=== PATIENT | female | born 1985 | race Two or more races ===

== ENCOUNTER 2019-08-12 08:08 | Inpatient (IN) | payer MEDICAID ==
[~2019-08-12] VITALS: Ht 157.5 cm; Wt 88.5 kg
--- NOTE | 2019-08-12 08:10 | NUR ---
BIB [facility] 77 FROM WORK,S/P SYNCOPAL EPISODE,C/P RUQ CRAMPING UPON ARRIVAL. A/OX4, BREATHING EVEN AND UNLABORED, CHANGED INTO GOWN, ATTACHED TO THE BATTER DEPOSITOR. NO DISTRESS NOTED. IV LINE PRESENT MARINE UNDERWRITER.
[2019-08-12] MEDS ORDERED: IV NS 0.9% 1,000 ML BAG IV ONE (08:30)
--- NOTE | 2019-08-12 08:30 | NUR ---
us tech at bedside.
[2019-08-12 09:05] LABS: BASOPHILS # (AUTO) 0.1 /CMM (0.0-0.2); BASOPHILS % (AUTO) 0.4 % (0.0-2.0); EOSINOPHILS % (AUTO) 0.4 % (0.0-6.0); HEMATOCRIT 33 % (33-45); LYMPHOCYTES # (AUTO) 3.4 /CMM (0.8-4.8); LYMPHOCYTES % (AUTO) 18.4 % (20.0-44.0); MEAN CORPUSCULAR HGB CONC 33 g/dl (31.0-36.0); MEAN CORPUSCULAR VOLUME 83 fL (82-100); MONOCYTES # (AUTO) 0.8 /CMM (0.1-1.30); MONOCYTES % (AUTO) 4.6 % (2.0-12.0); NEUTROPHILS % (AUTO) 76.2 % (43.0-81.0); PLATELET COUNT (AUTO) 324 /CMM (150-450); RED BLOOD CELL COUNT(AUTO) 3.99 MIL/uL (4.0-5.2); WHITE BLOOD COUNT (AUTO) 18.4 K/uL (4.3-11.0)
[2019-08-12 09:10] LABS: CREATININE 0.9 mg/dL (0.6-1.3); POTASSIUM 3.8 mmol/L (3.5-5.1)
[2019-08-12 09:45] LABS: ALBUMIN 3.1 g/dL (3.4-5.0); BILIRUBIN,DIRECT 0.1 mg/dL (0.0-0.2); BILIRUBIN,TOTAL 0.8 mg/dL (0.2-1.0); TOTAL PROTEIN, SERUM 7.2 g/dL (6.4-8.2)
--- NOTE | 2019-08-12 10:02 | NUR ---
patient unable to urinate at this time. unable to provide sample.
[2019-08-12 10:26] LABS: BASOPHILS # (AUTO) 0.1 /CMM (0.0-0.2); BASOPHILS % (AUTO) 0.4 % (0.0-2.0); EOSINOPHILS % (AUTO) 0.2 % (0.0-6.0); HEMATOCRIT 33 % (33-45); LYMPHOCYTES % (AUTO) 10.9 % (20.0-44.0); MEAN CORPUSCULAR HGB CONC 33 g/dl (31.0-36.0); MEAN CORPUSCULAR VOLUME 83 fL (82-100); MONOCYTES # (AUTO) 0.8 /CMM (0.1-1.30); NEUTROPHILS # (AUTO) 15.8 /CMM (1.8-8.9); NEUTROPHILS % (AUTO) 84.5 % (43.0-81.0); PLATELET COUNT (AUTO) 309 /CMM (150-450); RED BLOOD CELL COUNT(AUTO) 3.99 MIL/uL (4.0-5.2); WHITE BLOOD COUNT (AUTO) 18.6 K/uL (4.3-11.0)
--- NOTE | 2019-08-12 10:43 | NUR ---
MOVE SHEET TURNED IN
--- NOTE | 2019-08-12 11:38 | NUR ---
MOVE SHEET SUBMITTED AND CALLED FOR TELE BED
--- NOTE | 2019-08-12 11:59 | NUR ---
PATIENT RESTING. NO DISTRESS NOTED
[2019-08-12] MEDS ORDERED: ACETAMINOPHEN ES 500 MG TABLET ONE (12:12)
[2019-08-12] MEDS ORDERED: ACETAMINOPHEN ES 500 MG TABLET PO ONE (12:20)
--- NOTE | 2019-08-12 12:21 | NUR ---
RECEIVED VERBAL ORDER TO GIVE TYLENOL 1GM PO X1 BY DR. WEN, PATIENT WITH 5/10PS.
[2019-08-12] MEDS ORDERED: IV D5/ 0.9% NACL 1,000 ML IV ONE (12:47)
[2019-08-12] MEDS ORDERED: HYDROMORPHONE 1 MG/1 ML DISP.SYRIN ONE (12:55)
[2019-08-12] MEDS ORDERED: HYDROMORPHONE INJ 2 MG/ML DISP.SYRIN IV ONE (13:00)
--- NOTE | 2019-08-12 13:54 | NUR ---
REPORT GIVENT Magdiel DURANT RN FOR GILBERT.
--- NOTE | 2019-08-12 14:14 | NUR ---
CALLED DR. WOOD INFORMED THAT PT WILL STAY IN THE HOSPITAL
--- NOTE | 2019-08-12 14:33 | NUR ---
PATIENT TRANSFERRED TO ROOM 319 VIA ACLS PROTOCOL. NO DISTRESS NOTED. ENDORSED TO JUANITA HENRIQUEZ.
--- NOTE | 2019-08-12 15:06 | NUR ---
MS/RN New admission New admission from emergency room with syncope and abdominal pain secondary to . Patient fully admitted, skin intact, only history is cholecystectomy. Awaiting orders from Dr Galeana.
[2019-08-12] MEDS ORDERED: IV D5/0.45 NACL 1,000 ML IV PRN (15:12)
[2019-08-12] MEDS ORDERED: Z GUARD REMEDY 2 OZ OINT TP PRN (15:30)
[2019-08-12] MEDS ORDERED: ACETAMINOPHEN 325 MG TABLET PO PRN (15:30)
[2019-08-12] MEDS ORDERED: MAGNESIUM HYDROXIDE 30 ML UDC PO PRN (15:30)
[2019-08-12] MEDS ORDERED: MAG HYDROX/AL HYDROX/SIMETH 30 ML UDC PO PRN (15:30)
[2019-08-12] MEDS: HYDROCODONE/APAP 5/325MG 1 EACH TABLET PO PRN ×2 (15:52→20:02)
[2019-08-12] MEDS: ONDANSETRON HCL/PF 4 MG/2 ML VIAL IVP PRN ×2 (15:55→22:20)
[2019-08-12 16:19] VITALS: BP 111/64
[2019-08-12 17:30] LABS: HEMOGLOBIN 9.5 g/dL (11.5-14.8)
--- NOTE | 2019-08-12 18:30 | NUR ---
MS/RN End note Patient remains in stable condition, pain appears to be controlled with norco at this time. No nausea or vomiting. IV fluids infusing at 75ml/hr via left AC 18g, no signs of infiltration seen. All questions and concerns addressed. Will endorse to [facility] shift lead.
--- NOTE | 2019-08-12 19:40 | NUR ---
RN OPENING NOTES 1939 RECEIVED PATIENT AWAKE IN BED, FAMILY AT BED SIDE. A/O X 4. PATIENT ABLE TO VERBALIZE NEEDS. NO SIGNS OF RESPIRATORY DISTRESS, NO SHORTNESS OF BREATH NOTED. TELE READING CURRENTLY ST 98. PATIENT COMPLAINS OF PAIN OR DISCOMFORT AT THIS TIME ON R ABDOMEN. IV SITE LAC IN PLACE, INTACT, PATENT, NO SIGNS OF INFECTION/INFILTRATION. SAFETY PRECAUTIONS IMPLEMENTED; CALL LIGHT WITHIN REACH, BED LOW, BED LOCKED, BILATERAL UPPER SIDE RAILS UP. WILL CONTINUE TO MONITOR.
[2019-08-12 20:00] VITALS: BP 113/68
--- NOTE | 2019-08-12 21:05 | NUR ---
RN NOTES 5197 PATIENT COMPLAINING OF PAIN 10/10 IN R ABDOMINAL AREA. PEPITO EARLIER IS NOT DOING ANY GOOD FOR HER. PAGED DR. WOOD TO UPDATE HER. DR. WOOD ORDERED: DILAUDID IVP 2 MG Q2H. VERBAL READBACK ORDER. WILL INPUT ORDERS AND VERIFY WITH THE PHARMACY.
[2019-08-12] MEDS ORDERED: HYDROMORPHONE INJ 2 MG/ML DISP.SYRIN IV PRN (21:30)
[2019-08-12 21:31] VITALS: BP 113/68
[2019-08-12] MEDS: HYDROMORPHONE INJ 2 MG/ML DISP.SYRIN IV PRN (21:36)
[2019-08-13] VITALS (8 sets, daily range): BP systolic 115–133; BP diastolic 57–71
[2019-08-13 02:26] LABS: APPEARANCE,URINE TURBID (CLEAR); BILIRUBIN,URINE NEGATIVE (NEGATIVE); BLOOD, URINE NEGATIVE Ery/uL (NEGATIVE); COLOR,URINE YELLOW (YELLOW); KETONES,URINE 15 (NEGATIVE); LEUKOCYTE ESTERASE ,URINE NEGATIVE (NEGATIVE); NITRITE, URINE NEGATIVE (NEGATIVE); PROTEIN,URINE TRACE mg/dl (NEGATIVE); UGLUCOSE NEGATIVE (NEGATIVE); UROBILINOGEN,URINE 0.2 EU/dL (0.2)
[2019-08-13 02:34] LABS: BACTERIA,URINE Few /HPF (None Seen); RBC,URINE 0-2 /HPF (0-2); SQUAMOUS EPITHELIAL CELL,UR Rare /HPF (None Seen); URINE AMORPHOUS URATE Many /HPF (None Seen); WBC,URINE 0-2 /HPF (0-3)
[2019-08-13] MEDS: HYDROMORPHONE INJ 2 MG/ML DISP.SYRIN IV PRN ×3 (06:08→18:42)
--- NOTE | 2019-08-13 06:24 | NUR ---
RN CLOSING NOTES PATIENT IS CURRENTLY ASLEEP, EASILY AWAKENED. NO SIGNS OF RESPIRATORY DISTRESS, NO SHORTNESS OF BREATH NOTED, RESPIRATIONS EVEN AND UNLABORED. TELE READING SR. PATIENTS PAIN APPEARS TO BE CONTROLLED WITH DILAUDID AT THIS TIME. IV SITE LAC REMAINS IN PLACE, INTACT AND PATENT, NO SIGNS OF INFECTION/INFILTRATION, FLUSHED. PATIENT KEPT CLEAN, DRY AND COMFORTABLE. ALL NEEDS MET ON SHIFT. ALL DUE MEDS GIVEN ORDERED WITH NO ADVERSE EFFECTS. SAFETY PRECAUTIONS IMPLEMENTED; CALL LIGHT WITHIN REACH, BED LOW, BED LOCKED, BILATERAL UPPER SIDE RAILS UP. WILL ENDORSE TO DAY SHIFT NURSE FOR CONTINUITY OF CARE.
[2019-08-13 08:17] LABS: BASOPHILS % (AUTO) 0.2 % (0.0-2.0); EOSINOPHILS % (AUTO) 0.1 % (0.0-6.0); HEMATOCRIT 25 % (33-45); HEMOGLOBIN 8.6 g/dL (11.5-14.8); LYMPHOCYTES # (AUTO) 1.7 /CMM (0.8-4.8); LYMPHOCYTES % (AUTO) 13.8 % (20.0-44.0); MEAN CORPUSCULAR HGB CONC 35 g/dl (31.0-36.0); MEAN CORPUSCULAR VOLUME 82 fL (82-100); MONOCYTES # (AUTO) 0.7 /CMM (0.1-1.30); MONOCYTES % (AUTO) 6.1 % (2.0-12.0); NEUTROPHILS # (AUTO) 9.8 /CMM (1.8-8.9); NEUTROPHILS % (AUTO) 79.8 % (43.0-81.0); PLATELET COUNT (AUTO) 226 /CMM (150-450); RED BLOOD CELL COUNT(AUTO) 2.99 MIL/uL (4.0-5.2); WHITE BLOOD COUNT (AUTO) 12.3 K/uL (4.3-11.0)
[2019-08-13] MEDS: IV NS 0.9% 1,000 ML IV PRN ×2 (08:44→18:42)
[2019-08-13 08:53] LABS: CALCIUM, SERUM 8.4 mg/dL (8.5-10.1); CREATININE 0.7 mg/dL (0.6-1.3); MAGNESIUM 1.8 mg/dL (1.8-2.4); PHOSPHORUS 3.1 mg/dL (2.5-4.9); POTASSIUM 3.9 mmol/L (3.5-5.1)
[2019-08-13] MEDS: ONDANSETRON HCL/PF 4 MG/2 ML VIAL IVP PRN ×2 (11:19→18:40)
--- NOTE | 2019-08-13 13:51 | NUR ---
MS RN NOTES PATIENT SEEN BY DR. WOOD ORDERS TO DRAW REPEAT H/H AND AND OK TO DISCHARGE IN THE AM IF H/H DID NOT DROP.
[2019-08-13 15:30] LABS: HEMOGLOBIN 8.6 g/dL (11.5-14.8)
--- NOTE | 2019-08-13 19:32 | NUR ---
MS RN NOTES PATIENT IN BED RESTING NO SOB OR ACUTE DISTRESS NOTED. ALL DUE MEDICATIONS ADMINISTERED. ALL NEEDS MET. NO ACUTE CHANGED NOTED. PAIN WAS WELL CONTROLLED. ENDORSED CARE TO PM SHIFT.
--- NOTE | 2019-08-13 19:59 | NUR ---
MS RN OPENING NOTES PATIENT RECEIVED RESTING IN BED A/O X 4. STABLE ON RA WITH BREATHING EVEN AND UNLABORED, NO SOB NOTED. NO SIGNS OF ACUTE DISTRESS. NO COMPLAINTS OF PAIN OR DISCOMFORT. IV LOCATED ON L AC RUNNING D51/2 NS. SAFETY PRECAUTIONS IN PLACE WITH BED IN LOWEST POSITION, CALL LIGHT WITHIN REACH, BREAKS ON, AND SIDE RAILS UP X2. WILL CONTINUE TO MONITOR.
[2019-08-14] MEDS: HYDROMORPHONE INJ 2 MG/ML DISP.SYRIN IV PRN ×4 (03:43→21:51)
[2019-08-14] MEDS: ONDANSETRON HCL/PF 4 MG/2 ML VIAL IVP PRN (03:47)
--- NOTE | 2019-08-14 06:28 | NUR ---
MS RN CLOSING NOTES PATIENT CURRENTLY RESTING IN BED A/O X 4. STABLE ON RA BREATHING EVEN AND UNLABORED. NO SIGNS OF ACUTE DISTRESS. NO CURRENT COMPLAINTS OF PAIN OR DISCOMFORT. IV LOCATED ON L AC #20. SAFETY PRECAUTIONS IN PLACE WITH BED IN LOWEST POSITION, BREAKS ON, CALL LIGHT WITHIN REACH, AND SIDR RAILS UP X2. WILL ENDORSE TO ONCOMING SHIFT ABOUT GILBERT. .
--- NOTE | 2019-08-14 07:46 | NUR ---
MS RN OPENING NOTES RECEIVED PATIENT IN BED, AWAKE, A/O X4. PATIENT ON ROOM AIR BREATHING EVENLY AND UNLABORED. NO SOB PRESENT. PATIENT STATES SOME MILD PAIN AND DISCOMFORT IN HER ABDOMEN. MD AWARE. LAC GAUGE # 20 PRESENT AND INTACT, FLUSHING WELL. SAFETY PRECAUTIONS IN PLACE; BED IN LOW POSITION AND LOCKED, RAILS UP X 2, CALL LIGHT WITHIN REACH. WILL CONTINUE TO MONITOR PATIENT.
[2019-08-14 08:00] VITALS: BP 138/77
[2019-08-14 11:14] LABS: BASOPHILS # (AUTO) 0.1 /CMM (0.0-0.2); BASOPHILS % (AUTO) 0.4 % (0.0-2.0); EOSINOPHILS % (AUTO) 0.2 % (0.0-6.0); HEMATOCRIT 28 % (33-45); HEMOGLOBIN 9.4 g/dL (11.5-14.8); LYMPHOCYTES # (AUTO) 1.7 /CMM (0.8-4.8); LYMPHOCYTES % (AUTO) 11.1 % (20.0-44.0); MEAN CORPUSCULAR HGB CONC 34 g/dl (31.0-36.0); MEAN CORPUSCULAR VOLUME 82 fL (82-100); MONOCYTES % (AUTO) 6.1 % (2.0-12.0); NEUTROPHILS # (AUTO) 12.9 /CMM (1.8-8.9); NEUTROPHILS % (AUTO) 82.2 % (43.0-81.0); PLATELET COUNT (AUTO) 289 /CMM (150-450); WHITE BLOOD COUNT (AUTO) 15.7 K/uL (4.3-11.0)
[2019-08-14 11:24] LABS: ALBUMIN 2.8 g/dL (3.4-5.0); CALCIUM, SERUM 8.8 mg/dL (8.5-10.1); CREATININE 0.7 mg/dL (0.6-1.3); POTASSIUM 4.1 mmol/L (3.5-5.1)
[2019-08-14 16:00] VITALS: BP 125/74
[2019-08-14 17:29] LABS: HEMOGLOBIN 8.9 g/dL (11.5-14.8)
--- NOTE | 2019-08-14 19:29 | NUR ---
MS RN CLOSING NOTES PATIENT IN BED, AWAKE, A/O X4. PATIENT ON ROOM AIR BREATHING EVENLY AND UNLABORED. NO SOB PRESENT. PATIENT STATES SOME MILD PAIN AND DISCOMFORT IN HER ABDOMEN. PATIENT RECEIVED PRESCRIBED PRN MEDICATION FOR PAIN (DULAUDID) X 2. LAC GAUGE # 20 PRESENT AND INTACT, FLUSHING WELL. SAFETY PRECAUTIONS IN PLACE; BED IN LOW POSITION AND LOCKED, RAILS UP X 2, CALL LIGHT WITHIN REACH. WILL ENDORSE TO PIPE BOWL PAINT TRIMMER NURSE.
--- NOTE | 2019-08-14 19:30 | NUR ---
MS/RN OPENING NOTES: RECEIVED PATIENT IN BED, AWAKE, A/O X4. PRESENT AT BEDSIDE. PATIENT ON ROOM AIR, NO SOB NOTED. BREATHING EVENLY AND UNLABORED. PATIENT STATES SOME MILD PAIN AND DISCOMFORT IN HER ABDOMEN. MD AWARE. LAC GAUGE # 20 PRESENT AND INTACT, FLUSHING WELL. SAFETY PRECAUTIONS IN PLACE; BED IN LOW POSITION AND LOCKED, RAILS UP X2, CALL LIGHT WITHIN REACH. WILL CONTINUE TO MONITOR PATIENT ACCORDINGLY.
[2019-08-14 20:00] VITALS: BP 110/64
--- NOTE | 2019-08-14 21:56 | NUR ---
MS/RN NOTES: PATIENT COMPLAINED OF PAIN LEVEL OF 8/10. ADMINISTERED DILAUDID 2MG IV. VITAL SIGNS ARE WNL. PATIENT IS STABLE AT THIS TIME. WILL CONTINUE MONITORING PT ACCORDINGLY.
[2019-08-15] MEDS: HYDROMORPHONE INJ 2 MG/ML DISP.SYRIN IV PRN ×4 (05:51→19:00)
--- NOTE | 2019-08-15 05:57 | NUR ---
MS/RN NOTES: PATIENT COMPLAINED OF PAIN LEVEL OF 8/10. ADMINISTERED DILAUDID 2MG IV. VITAL SIGNS ARE WNL. PATIENT IS STABLE AT THIS TIME. ASSISTED TO THE BATHROOM. WILL REASSESS AND CONTINUE MONITORING PT ACCORDINGLY.
--- NOTE | 2019-08-15 06:30 | NUR ---
MS/RN CLOSING NOTES: PATIENT IN STABLE CONDITION, RESTING COMFORTABLY, REMAINS A/O X4. ON ROOM AIR, NO SOB PRESENT. BREATHING EVEN AND UNLABORED. NO COMPLAINS OF PAIN AND DISCOMFORT AT THIS TIME. LAC GAUGE # 20G PRESENT AND INTACT, FLUSHING WELL. SAFETY PRECAUTIONS KEPT IN PLACE; BED IN LOW POSITION AND LOCKED, RAILS UP X 2, CALL LIGHT WITHIN REACH. WILL ENDORSE TO DAY SHIFT NURSE FOR GILBERT.
--- NOTE | 2019-08-15 07:46 | NUR ---
MS RN OPENING NOTES RECEIVED PATIENT IN BED, AWAKE, A/O X 4. PATIENT BREATHING ON ROOM AIR. BREATHING NORMAL, NON-LABORED. NO COMPLAINS OF PAIN AT THIS TIME, NO N/V. LAC GAUGE # 20 PRESENT AND INTACT, FLUSHING WELL. SAFETY PRECAUTIONS IN PLACE; BED LOW AND LOCKED, RAILS UP X2, CALL LIGHT WITHIN REACH. WILL CONTINUE TO MONITOR PATIENT.
[2019-08-15 08:00] VITALS: BP 132/63
--- NOTE | 2019-08-15 14:27 | NUR ---
MS RN NOTES PER DOCTOR SENIA CONTACTED DR CARLTON WOOD REGARDING THE PATIENT TO FIGURE OUT HER DISCHARGE. LEFT A VOICEMAIL. WAITING FOR A REPLY.
[2019-08-15] MEDS ORDERED: HYDR-4384 PO (15:59)
[2019-08-15 16:00] VITALS: BP 124/68
--- NOTE | 2019-08-15 19:10 | NUR ---
MS RADIO BOARD OPERATOR NOTES PATIENT GOING HOME IN MEDICALLY STABLE CONDITION. SHE HAS BEEN CLEARED BY HER DOCTOR ZULAY WOOD. PATIENT IS STABLE, BREATHING ON ROOM AIR WITH NO SIGNS OF DISTRESS OR SOB. PATIENT IS IN MILD PAIN. HER PRESCRIBED MEDICATIONS HAVE BEEN EXPLAINED TO HER. PATIENT VERBALIZED UNDERSTANDING. VALUABLE FORM CHECKED AND SIGNED. DISCHARGE EDUCATION PROVIDED AND DISCHARGE PAPERS SIGNED. BEFORE LEAVING THE FLOOR PATIENTS WRIST BAND AND HER IV HAVE BEEN REMOVED. PATIENT LEFT THE FLOOR AT 1915 VIA WHEELCHAIR ACCOMPANIED BY HER AND MARKETING CONTENT SPECIALIST.
== END 2019-08-15 19:00 | disposition home or self-care (01) | DRG 566 ==
LOC: ER 08:11 → TELE 13:50 → MED 08-13 08:58
PROVIDERS: ADMIT Internal Medicine; ATTEND Internal Medicine
DX: O26.891 Other specified pregnancy related conditions, first trimester (principal); E44.0 Moderate protein-calorie malnutrition; E87.1 Hypo-osmolality and hyponatremia; D62 Acute posthemorrhagic anemia; Z68.35 Body mass index [BMI] 35.0-35.9, adult; N94.89 Other specified conditions associated with female genital organs and menstrual cycle; Z3A.09 9 weeks gestation of pregnancy; K59.00 Constipation, unspecified; O25.11 Malnutrition in pregnancy, first trimester; O99.011 Anemia complicating pregnancy, first trimester; R55 Syncope and collapse; N83.299 Other ovarian cyst, unspecified side
CPT/HCPCS: 36415; 76805-TC; 80048-TC; 80053-TC; 80076-TC; 81000-TC; 83735-TC; 84100-TC; 84702-TC; 85025-TC; 85027-TC; 85730-TC; 86850-TC; 87081-TC; 93307-TC; G0378; J1170; J2405; J7030; J7042